=== PATIENT | male | born 1955 | race Caucasian/White ===

== ENCOUNTER → 2020-03-02 14:21 | Outpatient (CLI) | payer MEDICARE, SELFPAY ==
--- NOTE | ~2020-03-02 | MR_ITS ---
EXAMINATION: MR knee RT wo con DATE: 03/02/2020 15:05 INDICATION: Right knee pain. TECHNIQUE: Magnetic resonance imaging (MRI) of the right knee was performed without intravenous contr ast. Sequences included coronal and sagittal PD-weighted FS FSE and coronal, sagittal, and axial STIR FSE. COMPARISON: Right knee radiographs 02/18/2020, 06/09/2014 FINDINGS: There is artifact from a total right knee arthroplasty with patellar resurfacing. In the distal femor al metaphysis, there is a 4.5 x 1.8 cm lesion of mixed signal intensity correlating with a sclerotic lesion by radiographs. There is a small knee joint effusion. There is a small Jeffries's cyst. IMPRESSION: 1. Lesion in distal femoral metaphysis that is new from 06/09/2014. In the absence of known malignancy , this finding is most likely osteonecrosis. 2. Total right knee arthroplasty. 3. Small knee joint effusion. 4. Small Jeffries's cyst. Reviewed, dictated and finalized at location A. EMS TECHNICIAN IMPRESSION: 1. Lesion in distal femoral metaphysis that is new from 06/09/2014. In the absen ce of known malignancy, this finding is most likely osteonecrosis. 2. Total right knee arthroplasty. 3. Small knee joint effusion. 4. Small Jeffries's cyst.
== END ==
PROVIDERS: Visit Provider Orthopaedic Surgery
DX: M71.21 Synovial cyst of popliteal space [Baker], right knee (principal); M25.461 Effusion, right knee
CPT/HCPCS: 73721

== ENCOUNTER → 2020-03-17 07:24 | Outpatient (CLI) | payer MEDICARE, SELFPAY ==
--- NOTE | ~2020-03-17 | MR_ITS ---
EXAMINATION: MR lumbar spine wo con EXAM DATE: 03/17/2020 08:08 INDICATION: Lumbar radicular pain. TECHNIQUE: Multi-sequential, multiplanar MR images of the lumbar spine were obtained without contrast . Sagittal T1, T2, T2 fat saturation images. Axial T2 weighted images. There is no prior study for comparison. FINDINGS: There is mild to moderate disc disease from T11 through S1. There is 3 mm retrolisthesis L5 on S1. There are scattered focal signal abnormalities consistent with hemangiomata, otherwise withou t focal suspicious marrow signal abnormalities. The conus medullaris terminates at the L1/2 level and has normal signal intensity and morphology. Paraspinal soft tissue is unremarkable. Level by level evaluation: T12-L1: There is a mild diffuse disc bulge. Facet arthropathy: Mild. Neural foraminal stenosis: No stenosis. Central canal stenosis: No stenosis. L1-L2: There is a mild to moderate diffuse disc bulge. Facet arthropathy: Mild to moderate. Neural foraminal stenosis: Mild bilateral. Central canal stenosis: Mild. L2-L3: There is a moderate diffuse disc bulge. Facet arthropathy: Moderate. Neural foraminal stenosis: Mild bilateral. Central canal stenosis: Moderate, nerve root crowding. L3-L4: There is a moderate diffuse disc bulge. Facet arthropathy: Moderate. Neural foraminal stenosis: Mild to moderate bilateral. Central canal stenosis: Mild to moderate. L4-L5: There is a moderate diffuse disc bulge. Facet arthropathy: Moderate. Neural foraminal stenosis: Moderate bilateral. Central canal stenosis: Mild to moderate. L5-S1: There is a mild to moderate diffuse disc bulge. Facet arthropathy: Mild to moderate. Neural foraminal stenosis: Moderate right, mild to moderate left. Central canal stenosis: Mild. IMPRESSION: 1. Moderate lumbar spondylosis. Reviewed, dictated and finalized at location A. NG MILL SETTER
== END ==
PROVIDERS: Visit Provider Nurse Practitioner Family
DX: M47.26 Other spondylosis with radiculopathy, lumbar region (principal)
CPT/HCPCS: 72148

== ENCOUNTER 2021-01-12 13:38 | Emergency (ER) | payer MEDICARE, SELFPAY ==
[2021-01-12 13:46] VITALS: BP 166/74; PULSE 44; RESP 16; TEMP 36.3; O2SAT 98
--- NOTE | 2021-01-12 14:02 | ED.WOUNDLAC ---
HPI - Wound/Laceration General Chief Complaint: Wound/Laceration Stated Complaint: Laceration to Finger/Rignt Time Seen by Provider: 01/12/21 14:00 Source: patient, RN notes reviewed and old records reviewed Mode of arrival: ambulatory Limitations: no limitations History of Present Illness HPI narrative: 65 year old male presents to express care with complaints of laceration to his right 4th finger medial distal aspect which occurred about 30 minutes from accident with slash trimmer. Patient reports that his tetanus is up to date. Patient has 1.5cm laceration to the medial distal right 4th finger with moderate amount of bleeding noted on arrival, patient applied compression dressing at home prior to arrival. Patient has full movement of his right 4th finger with some stated intermittent tingling to his finger, good capillary refill of nail bed with no damage to nail noted. Patient has strong right radial pulse present. Onset (ago): minute(s) (30 MINUTES AGO) Patient tetanus UTD: Yes Context: accidental Treatments prior to arrival: bandage Related Data Home Medications Medication Instructions Recorded Confirmed bupropion HCl 300 mg 24 hr tablet, 300 mg PO QAM 11/26/19 01/12/21 extended release cyanocobalamin (vitamin B-12) 5,000 mcg SUBLINGUAL DAILY 11/26/19 01/12/21 5,000 mcg/mL sublingual drops etodolac 400 mg tablet 400 mg PO BID 11/26/19 01/12/21 gabapentin 800 mg tablet 800 mg PO DAILY 11/26/19 01/12/21 hydrocodone 2.5 mg-acetaminophen 1 tablet PO Q6H PRN 11/26/19 01/12/21 325 mg tablet lisinopril 40 mg tablet 40 mg PO DAILY 11/26/19 01/12/21 ropinirole 0.5 mg tablet 0.5 mg PO BID 11/26/19 01/12/21 rosuvastatin 10 mg tablet 10 mg PO DAILY 11/26/19 01/12/21 zolpidem 10 mg tablet 10 mg PO DAILY 11/26/19 01/12/21 Allergies Allergy/AdvReac Type Severity Reaction Status Date / Time No Known Allergies Allergy Unknown Verified 01/12/21 13:57 Review of Systems Review of Systems: CONSTITUTIONAL: Denies fever, chills, or sweats. EYES: Denies visual changes, redness, or discharge. ENT: Denies rhinorrhea, congestion, sore throat, or otalgia. CARDIOVASCULAR: Denies chest pain, palpitations, or edema. RESPIRATORY: Denies cough or dyspnea. GASTROINTESTINAL: Denies abdominal pain, nausea, vomiting, or diarrhea. GENITOURINARY: Denies dysuria or hematuria. SKIN: Denies rash or itching.Laceration to the right distal medial aspect of 4th finger, no nail involvement MUSCULOSKELETAL: Chronic back pain, joint pain, or myalgia. NEUROLOGIC: Denies headache, numbness, or weakness. PSYCHIATRIC: Positive history of anxiety or depression. All systems reviewed & are unremarkable except as noted in HPI and below PMFSH Past Medical History Medical History (Updated 01/16/21 @ 16:46 by Sophia Mckeon NP) Body mass index (BMI) of 40.1 to 44.9 in adult Chronic back pain DDD (degenerative disc disease) Depression Elevated cholesterol Hypertension Lesion of right femur right distal femur metaphyseal bone infarct verses enchondroma MYRIAM (obstructive sleep apnea) Pain in left shoulder Surgical History Surgical History H/O Achilles tendon repair Left, Dr. Villavicencio H/O knee surgery R TKA - Dr. Villavicencio L TKA - Dr. Mobley, L TK revision , Dr. Villavicencio H/O shoulder surgery right clavicle, Dr. Hyatt Family History Family History (Updated 01/16/21 @ 16:43 by Sophia Mckeon NP) Mother Hypertension Alzheimers disease Sibling Acute myocardial infarction Father COPD (chronic obstructive pulmonary disease) Alzheimers disease Other ALS (amyotrophic lateral sclerosis) Social History Social History (Updated 01/16/21 @ 16:37 by Sophia Mckeon NP) Smoking status: Former smoker Alcohol intake: never Substance use type: opiates Last use: pain management for chronic pain and epidurals for DDD Living arrangements: with family Gender identity (if verbalized by the pat
== END 2021-01-12 15:05 | disposition home or self-care (01) ==
PROVIDERS: Emergency Provider Registered Nurse; PCP Internal Medicine
DX: S61.214A Laceration without foreign body of right ring finger without damage to nail, initial encounter (principal); W29.3XXA Contact with powered garden and outdoor hand tools and machinery, initial encounter; Z87.891 Personal history of nicotine dependence; E78.00 Pure hypercholesterolemia, unspecified; I10 Essential (primary) hypertension; G47.33 Obstructive sleep apnea (adult) (pediatric); F32.A Depression, unspecified
CPT/HCPCS: 12001; 99213; G0463

== ENCOUNTER 2022-09-21 07:34 | Outpatient (CLI) | payer MEDICARE, SELFPAY ==
--- NOTE | 2022-09-21 07:57 | ECG_ITS ---
Measurements Intervals [place] Rate: 39 P: -5 DE: 205 QRS: 1 QRSD: 108 T: 15 QT: 448 QTc: 362 Interpretive Statements SINUS BRADYCARDIA WITH MARKED SINUS ARRHYTHMIA BORDERLINE AV CONDUCTION DELAY VOLTAGE CRITERIA FOR LVH BORDERLINE T WAVE ABNORMALITY- INFERIOR LEADS BASELINE ARTIFACT- I, II, III, AVR, AVL, AVF ABNORMAL ECG NO PREVIOUS ECG AVAILABLE FOR COMPARISON Electronically Signed On 09-21-2022 8:33:15 CDT by Alvaro Palmer D.O.
[2022-09-21 08:32] LABS: Hematocrit 43.9 % (42.0-52.0); Hemoglobin 14.1 g/dL (14.0-18.0); Mean Corpuscular HGB Conc 32.1 g/dl (32-36); Mean Corpuscular Hemoglobin 30.4 pg (26-34); Mean Corpuscular Volume 94.6 fl (80-100); Mean Platelet Volume 9.9 fl (7.4-10.4); Platelet Count Result 175 k/mm3 (150-375); Red Blood Count 4.64 M/mm3 (4.6-6.20); White Blood Count 6.5 K/mm3 (4.5-10.0)
[2022-09-21 08:36] LABS: Appearance Urine Clear (Clear); Bilirubin Urine Negative (Negative); Blood Urine Negative (Negative); Color Urine Yellow (Yellow); Glucose Urine UA Negative (Negative); Ketones Urine Negative (Negative); Leukocyte Esterase Ur Negative LEU/UL (Negative); Nitrate Urine Negative (Negative); Protein Urine Negative (Negative); pH Urine 5.5 (5.0-9.0)
[2022-09-21 08:40] LABS: INR 1.1; Prothrombin Time 15.2 Seconds (11.1-14.7)
[2022-09-21 08:41] LABS: Partial Thromboplastin Time 27.8 SECONDS (22.3-36.8)
[2022-09-21 08:52] LABS: Add Urine Microscopic? NO
[2022-09-21 10:04] LABS: Potassium 3.8 mmol/L (3.4-5.0)
[2022-09-21 10:09] LABS: Anion Gap 7 mmol/L (8-16); Blood Urea Nitrogen 22 mg/dL (9-20); Calcium 9.9 mg/dL (8.4-10.2); Carbon Dioxide 31 mmol/L (22-30); Chloride 102 mmol/L (98-107); Estimated Glomerular Filt Rate > 60; Glucose 91 mg/dL (65-110); Sodium 140 mmol/L (137-145)
== END 2022-09-21 07:35 | disposition home or self-care (01) ==
PROVIDERS: PCP Internal Medicine; Visit Provider Neurological Surgery
DX: G89.29 Other chronic pain (principal); M54.9 Dorsalgia, unspecified; I10 Essential (primary) hypertension; Z01.818 Encounter for other preprocedural examination; R94.31 Abnormal electrocardiogram [ECG] [EKG]
CPT/HCPCS: 36415; 80048; 81003; 85027; 85610; 85730; 93005

== ENCOUNTER 2022-09-27 01:42 | Day surgery (SDC) | payer MEDICARE, SELFPAY ==
[2022-09-20 11:17] VITALS: BMI 35.7
--- NOTE | 2022-09-20 11:53 | PC.NURSE ---
Report to the Outpatient Waiting Room, entrance under the green pavilion located off [facility], at time __8:30AM on date __09/27/22 . Planned Procedure Time: __10:30AM . Time changes happen often and if your time is changed the preop area will call you the afternoon before. - You and your visitor will be asked to self-screen and do not enter if you have any COVID symptoms. - A mask is optional within the hospital at this time. Patients may have clear liquids (water, carbonated beverages, clear teas, apple juice) until 3 hours prior to surgery with a maximum of 20 ounces. - No food from midnight until time of surgery Take the following medications with a SIP of water the morning of surgery: __BUPROPRION, GABAPENTIN, OXYCODONE DO NOT STOP ANY OF YOUR OTHER PRESCRIPTION MEDICATIONS PRIOR TO SURGERY ?EXCEPT THE FOLLOWING Medications to discontinue per physician ____HOLD ELIQUIS 3 DAYS PRE-OP PER DR TADEO(PER PATIENT)- LAST DOSE 09/23/22. HOLD ALL VITAMINS/SUPPLEMENTS 3 DAYS PRE-OP PER ANESTHESIA- LAST DOSE 09/23/22. Please no make-up, nail ukrainian, hairspray, perfume, deodorant, or body powder the day of surgery. No jewelry (including any body piercings) or valuables the day of surgery, leave them at home. Please take a shower or bath the night before, or the morning of, surgery with an antibacterial soap. Wear comfortable, loose fitting clothing. Children are encouraged to wear pajamas. - Jewelry must be removed prior to entering the operating room. Rings and piercings that are not removed may be cut off. - The hospital will not accept responsibility for valuables. - Please leave all valuables, including medications, at home the day of surgery. If you are going home after surgery, a licensed residential recycle driver must drive you home. - NO public transportation without another adult if you receive anesthesia. - We recommend that an adult stay with you for 24 hours following discharge. - We also recommend that you do not drive, make important decision, drink alcoholic beverages, or take any drugs that were not prescribed by your health care provider for at least 24 hours after your discharge time. Follow any additional instructions given to you from your surgeon. If you or anyone in your household have experienced Covid symptoms in the past week, please notify your surgeon or the nurse liaison at the phone number below for possible testing. Telephone instructions given to __PATIENT and asked if any additional questions and then verbalized understanding. Patient advised to call surgeon office or pre surgery nurse liaison [phone] if any additional questions.
--- NOTE | 2022-09-26 14:46 | WPDANESEPPF ---
Anes - Initial Pre Proc Eval Procedure: Operation Date: 09/27/22 12:30 Proposed Procedures p Insertion Dorsal Column Stimulator Lead and Generator - Jeremy Freire MD Date/Time: 09/26/22 14:46 Surgeon: Jeremy Freire MD Pre Op Diagnosis: chronic back and leg pain Patient Data Age: 67 Gender: M Height: 1.85 m Weight: 123 kg Allergies Allergy/AdvReac Type Severity Reaction Status Date / Time pork derived (porcine) AdvReac Severe Nausea and Verified 09/20/22 11:04 Vomiting, DIARRHEA morphine AdvReac Intermediate vomiting Verified 09/26/22 14:20 and diarrhea Home Medications Medication Instructions Recorded Confirmed Type gabapentin 800 mg tablet 800 mg PO BID 11/26/19 09/20/22 History ropinirole 0.5 mg tablet 0.5 mg PO HS 11/26/19 09/20/22 History zolpidem 10 mg tablet 10 mg PO HS 11/26/19 09/20/22 History valsartan 320 mg tablet 320 mg PO QAM 07/28/21 09/20/22 History B6 0.85 mg-folic 200 1 tablet PO HS 01/06/22 09/20/22 History [id number] oral chewable tablet (Neuriva Plus) apixaban 5 mg tablet (Eliquis) 5 mg PO BID 01/06/22 09/20/22 History ascorbic acid (vitamin C) 500 mg 500 mg PO BID 01/06/22 09/20/22 History capsule cholecalciferol (vitamin D3) 250 250 mcg PO DAILY 01/06/22 09/20/22 History mcg (10,000 unit) capsule rosuvastatin 10 mg tablet 10 mg PO DAILY 01/06/22 09/20/22 History triamcinolone acetonide 55 mcg 1 spray intranasal HS PRN 01/06/22 09/20/22 History nasal spray aerosol (Nasacort) Congestion bupropion HCl 300 mg 24 hr tablet, 300 mg PO QAM 09/20/22 09/20/22 History extended release cyanocobalamin (vitamin B-12) 1,000 mcg PO DAILY 09/20/22 09/20/22 History 1,000 mcg tablet hydrocodone 10 mg-acetaminophen 1 tablet PO TID PRN Pain 09/20/22 09/20/22 History 325 mg tablet oxycodone myristate 18 mg capsule 18 mg PO BID 09/20/22 09/20/22 History sprinkle extended release 12hr(DON'T CRUSH) (Xtampza ER) Patient hx anesthesia problems: none Family hx anesthesia problems: none Results Review: All pre-operative results and documents have been reviewed as part of the pre-operative evaluation. [facility] Past Medical History Medical History (Updated 09/26/22 @ 14:47 by Pedro Zimmerman DO) Atrial fibrillation Body mass index (BMI) of 40.1 to 44.9 in adult Chronic back pain DDD (degenerative disc disease) Depression Elevated cholesterol Hypertension Lesion of right femur 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 Villavicencio H/O knee surgery R TKA - Dr. Villavicencio L TKA - Dr. Mobley L TK revision , Dr. Villavicencio H/O shoulder surgery right clavicle, Dr. Hyatt Family History Family History Mother Hypertension Alzheimers disease Sibling Acute myocardial infarction Father COPD (chronic obstructive pulmonary disease) Alzheimers disease Other ALS (amyotrophic lateral sclerosis) Social History Social History Smoking status: Never smoker Alcohol intake: never Substance use: never Substance use type: opiates Last use: pain management for chronic pain and epidurals for DDD Lack of Transportation: No Lack of Food: Never True Current Housing: I Have Housing Concerned About Future Housing: No Difficulty Paying Gas/Electric Bills: No Difficulty Paying for Meds: No Currently Unemployed: No Education: High School Diploma/GED Difficulty w/ Childcare or Family Care: No Living arrangements: with family Additional living arrangements comments: Occupation/Education: retired Gender identity (if verbalized by the patient): Male Spiritual care concer
--- NOTE | 2022-09-27 11:06 | WPDANESEPPF ---
Anes - Initial Pre Proc Eval Procedure: Operation Date: 09/27/22 12:30 Proposed Procedures p Insertion Dorsal Column Stimulator Lead and Generator - Jeremy Freire MD Date/Time: 09/27/22 11:06 Surgeon: Jeremy Freire MD Pre Op Diagnosis: chronic back and leg pain Patient Data Age: 67 Gender: M Height: 1.85 m Weight: 123 kg Allergies Allergy/AdvReac Type Severity Reaction Status Date / Time pork derived (porcine) AdvReac Severe Nausea and Verified 09/20/22 11:04 Vomiting, DIARRHEA morphine AdvReac Intermediate vomiting Verified 09/26/22 14:20 and diarrhea Home Medications Medication Instructions Recorded Confirmed Type gabapentin 800 mg tablet 800 mg PO BID 11/26/19 09/20/22 History ropinirole 0.5 mg tablet 0.5 mg PO HS 11/26/19 09/20/22 History zolpidem 10 mg tablet 10 mg PO HS 11/26/19 09/20/22 History valsartan 320 mg tablet 320 mg PO QAM 07/28/21 09/20/22 History B6 0.85 mg-folic 200 1 tablet PO HS 01/06/22 09/20/22 History [id number] oral chewable tablet (Neuriva Plus) apixaban 5 mg tablet (Eliquis) 5 mg PO BID 01/06/22 09/20/22 History ascorbic acid (vitamin C) 500 mg 500 mg PO BID 01/06/22 09/20/22 History capsule cholecalciferol (vitamin D3) 250 250 mcg PO DAILY 01/06/22 09/20/22 History mcg (10,000 unit) capsule rosuvastatin 10 mg tablet 10 mg PO DAILY 01/06/22 09/20/22 History triamcinolone acetonide 55 mcg 1 spray intranasal HS PRN 01/06/22 09/20/22 History nasal spray aerosol (Nasacort) Congestion bupropion HCl 300 mg 24 hr tablet, 300 mg PO QAM 09/20/22 09/20/22 History extended release cyanocobalamin (vitamin B-12) 1,000 mcg PO DAILY 09/20/22 09/20/22 History 1,000 mcg tablet hydrocodone 10 mg-acetaminophen 1 tablet PO TID PRN Pain 09/20/22 09/20/22 History 325 mg tablet oxycodone myristate 18 mg capsule 18 mg PO BID 09/20/22 09/20/22 History sprinkle extended release 12hr(DON'T CRUSH) (Xtampza ER) Laboratory Tests 09/27/22 10:57 PT Pending INR Pending APTT Pending Patient hx anesthesia problems: none Family hx anesthesia problems: none Results Review: All pre-operative results and documents have been reviewed as part of the pre-operative evaluation. [facility] Past Medical History Medical History (Updated 09/26/22 @ 14:47 by Pedro Zimmerman, ) Atrial fibrillation Body mass index (BMI) of 40.1 to 44.9 in adult Chronic back pain DDD (degenerative disc disease) Depression Elevated cholesterol Hypertension Lesion of right femur 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 Villavicencio H/O knee surgery R TKA - Dr. Villavicencio L TKA - Dr. Mobley, L TK revision , Dr. Villavicencio H/O shoulder surgery right clavicle, Dr. Hyatt Family History Family History Mother Hypertension Alzheimers disease Sibling Acute myocardial infarction Father COPD (chronic obstructive pulmonary disease) Alzheimers disease Other ALS (amyotrophic lateral sclerosis) Social History Social History Smoking status: Never smoker Alcohol intake: never Substance use: never Substance use type: opiates Last use: pain management for chronic pain and epidurals for DDD Lack of Transportation: No Lack of Food: Never True Current Housing: I Have Housing Concerned About Future Housing: No Difficulty Paying Gas/Electric Bills: No Difficulty Paying for Meds: No Currently Unemployed: No Education: High School Diploma/GED Difficulty w/ Childcare or Family Care: No Living arrangements: with family Additional living arrangements comments: Occupati
[2022-09-27 11:13] VITALS: BP 138/68; PULSE 40; RESP 14; TEMP 37; O2SAT 99
[2022-09-27 11:13] LABS: Partial Thromboplastin Time 25.3 SECONDS (22.3-36.8); Prothrombin Time 13.5 Seconds (11.1-14.7)
--- NOTE | 2022-09-27 12:34 | PM.IMHP ---
H&P: HPI History of Present Illness Date/Time: 09/27/22 12:34 Chief Complaint: Back and leg pain Narrative: Daljit is a 59-year-old gentleman with back and leg pain that responded to a successful dorsal column stimulator trial who presents now for permanent implantation by way of laminectomy. He does not have specific muscle group weakness or dermatomal numbness. He is not having any bowel or bladder difficulty. Review of Systems Review of Systems: Patient denies shortness of breath, cough, fever, chills, nausea, vomiting, weight loss, weight gain, chest pain, dysuria. He has back and leg pain as described above. [facility] Past Medical History Medical History (Updated 09/26/22 @ 14:47 by Pedro Zimmerman DO) Atrial fibrillation Body mass index (BMI) of 40.1 to 44.9 in adult Chronic back pain DDD (degenerative disc disease) Depression Elevated cholesterol Hypertension Lesion of right femur 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 Villavicencio H/O knee surgery R TKA - Dr. Villavicencio L TKA - Dr. Mobley, L TK revision , Dr. Villavicencio H/O shoulder surgery right clavicle, Dr. Hyatt Family History Family History Mother Hypertension Alzheimers disease Sibling Acute myocardial infarction Father COPD (chronic obstructive pulmonary disease) Alzheimers disease Other ALS (amyotrophic lateral sclerosis) Social History Social History Smoking status: Never smoker Alcohol intake: never Substance use: never Substance use type: opiates Last use: pain management for chronic pain and epidurals for DDD Lack of Transportation: No Lack of Food: Never True Current Housing: I Have Housing Concerned About Future Housing: No Difficulty Paying Gas/Electric Bills: No Difficulty Paying for Meds: No Currently Unemployed: No Education: High School Diploma/GED Difficulty w/ Childcare or Family Care: No Living arrangements: with family Additional living arrangements comments: Occupation/Education: retired Gender identity (if verbalized by the patient): Male Spiritual care concerns: No Meds Home Medications and Allergies Home Medications Medication Instructions Recorded Confirmed Type gabapentin 800 mg tablet 800 mg PO BID 11/26/19 09/20/22 History ropinirole 0.5 mg tablet 0.5 mg PO HS 11/26/19 09/20/22 History zolpidem 10 mg tablet 10 mg PO HS 11/26/19 09/20/22 History valsartan 320 mg tablet 320 mg PO QAM 07/28/21 09/20/22 History B6 0.85 mg-folic 200 1 tablet PO HS 01/06/22 09/20/22 History [id number] oral chewable tablet (Neuriva Plus) apixaban 5 mg tablet (Eliquis) 5 mg PO BID 01/06/22 09/20/22 History ascorbic acid (vitamin C) 500 mg 500 mg PO BID 01/06/22 09/20/22 History capsule cholecalciferol (vitamin D3) 250 250 mcg PO DAILY 01/06/22 09/20/22 History mcg (10,000 unit) capsule rosuvastatin 10 mg tablet 10 mg PO DAILY 01/06/22 09/20/22 History triamcinolone acetonide 55 mcg 1 spray intranasal HS PRN 01/06/22 09/20/22 History nasal spray aerosol (Nasacort) Congestion bupropion HCl 300 mg 24 hr tablet, 300 mg PO QAM 09/20/22 09/20/22 History extended release cyanocobalamin (vitamin B-12) 1,000 mcg PO DAILY 09/20/22 09/20/22 History 1,000 mcg tablet hydrocodone 10 mg-acetaminophen 1 tablet PO TID PRN Pain 09/20/22 09/20/22 History 325 mg tablet oxycodone myristate 18 mg capsule 18 mg PO BID 09/20/22 09/20/22 History sprinkle extended release 12hr(DON'T CRUSH) (Xtampza ER) Allergies Allergy/AdvReac Type Severity Reaction Status Date / Time pork derived (porcine) AdvReac Severe Nausea and Verifi
--- NOTE | 2022-09-27 12:44 | WPDHPUPDATE1 ---
History and Physical Update Update Date/Time: 09/27/22 12:44 History and Physical has been reviewed, including an updated exam of the patient. There are NO changes in the patient's condition. Risks, benefits, and alternatives have been discussed and questions answered. Patient agrees to proceed with procedure.
[2022-09-27 13:19] VITALS: BP 156/73; PULSE 45; RESP 16; O2SAT 97
[2022-09-27] MEDS: LACTATED RINGERS 1,000 ML 30 ML IV CONT (13:19)
--- NOTE | 2022-09-27 15:01 | SUR.PHASEII ---
Dr. Freire and Dr. Gallardo both came to the bedside and spoke to patient and spouse about why the case was aborted. Dr. Freire told the patient and spouse about the next steps since this happened today. RN told the spouse to have patient follow-up with primary/radiation control specialist as well.
== END 2022-09-27 14:26 | disposition home or self-care (01) ==
PROVIDERS: PCP Internal Medicine; Visit Provider Neurological Surgery
PROC: (CPT 63655; principal; 2022-09-27 12:30)
DX: M47.816 Spondylosis without myelopathy or radiculopathy, lumbar region (principal); I48.91 Unspecified atrial fibrillation; I10 Essential (primary) hypertension; E78.00 Pure hypercholesterolemia, unspecified; G47.33 Obstructive sleep apnea (adult) (pediatric); Z79.01 Long term (current) use of anticoagulants; Z79.891 Long term (current) use of opiate analgesic; Z53.09 Procedure and treatment not carried out because of other contraindication
CPT/HCPCS: 63655; 63685; 36415; 80048; 81003; 85027; 85610; 85730; 93005; J1170; J2250; J3010; J3370; J7120

== ENCOUNTER 2023-12-07 16:32 | Emergency (ER) | payer MEDICARE, SELFPAY ==
[2023-12-07 16:55] VITALS: BP 139/86; PULSE 69; RESP 20; TEMP 37.2; O2SAT 96
[2023-12-07 17:30] VITALS: BP 139/86; PULSE 69; RESP 20; TEMP 37.2; O2SAT 96
--- NOTE | 2023-12-07 21:20 | ED.SKABFB ---
HPI - Skin/Abscess/Foreign Bdy General Chief complaint: Skin/Abscess/Foreign Body Stated complaint: lt first finger laceration Time Seen by Provider: 12/07/23 16:58 Source: patient, RN notes reviewed and old records reviewed Mode of arrival: ambulatory Limitations: no limitations History of Present Illness HPI narrative: 68-year-old male to Express Care with complaint of injury to distal 2nd finger of left hand. Patient reports that approximately 30 minutes prior to arrival he injured it with a hat trimmer. Patient reports that he did something similar to his right hand approximately 1 year ago so his tetanus is up to date. Bleeding controlled upon arrival. Patient calm and cooperative in exam room. Related Data Home Medications Medication Instructions Recorded Confirmed gabapentin 800 mg tablet 800 mg PO BID 11/26/19 12/07/23 ropinirole 0.5 mg tablet 0.5 mg PO BID 11/26/19 12/07/23 zolpidem 10 mg tablet 10 mg PO HS 11/26/19 12/07/23 valsartan 320 mg tablet 320 mg PO QAM 07/28/21 12/07/23 B6 0.85 mg-folic 200 1 tablet PO HS 01/06/22 12/07/23 [id number] oral chewable tablet (Neuriva Plus) ascorbic acid (vitamin C) 500 mg 500 mg PO BID 01/06/22 12/07/23 capsule cholecalciferol (vitamin D3) 250 250 mcg PO DAILY 01/06/22 12/07/23 mcg (10,000 unit) capsule cyanocobalamin (vitamin B-12) 1,000 mcg PO DAILY 09/20/22 12/07/23 1,000 mcg tablet hydrocodone 10 mg-acetaminophen 1 tablet PO TID PRN Pain 09/20/22 12/07/23 325 mg tablet oxycodone myristate 18 mg capsule 18 mg PO BID 09/20/22 12/07/23 sprinkle extended release 12hr(DON'T CRUSH) (Xtampza ER) apixaban 5 mg tablet (Eliquis) 5 mg PO BID 12/07/23 12/07/23 diltiazem HCl 90 mg tablet 90 mg PO BID 12/07/23 12/07/23 magnesium oxide 400 mg (241.3 mg 400 mg PO HS 12/07/23 12/07/23 magnesium) tablet primidone 50 mg tablet 50 mg PO BID 12/07/23 12/07/23 rosuvastatin 10 mg tablet 10 mg PO QMWF 12/07/23 12/07/23 tizanidine 4 mg tablet 4 mg PO TID 12/07/23 12/07/23 Allergies Allergy/AdvReac Type Severity Reaction Status Date / Time pork derived (porcine) AdvReac Severe Nausea and Verified 03/07/23 14:26 Vomiting, DIARRHEA morphine AdvReac Intermediate vomiting Verified 03/07/23 14:26 and diarrhea Review of Systems Review of Systems: All systems reviewed & are unremarkable except as noted in HPI and below Constitutional: Constitutional: Reports no additional constitutional complaints Eyes: Eyes: Reports no additional eye complaints ENT: Reports system reviewed and no additional complaints, except as documented Cardiovascular: Cardiovascular: Reports no additional cardiovascular complaints, Denies chest pain and Denies dyspnea Respiratory: Respiratory: Reports no additional respiratory complaints, Denies cough and Denies dyspnea Musculoskeletal: Musculoskeletal: Reports no additional musculoskeletal complaints Integumentary/Breasts: Skin/Breast: Reports as per HPI and Reports wounds ( Distal 2nd finger of left hand) Neurologic: Reports system reviewed and no additional complaints, except as documented Psychiatric: Psychiatric: Reports no additional psychiatric complaints REPLACED BY [facility] Past Medical History Medical History Atrial fibrillation Body mass index (BMI) of 40.1 to 44.9 in adult Chronic back pain DDD (degenerative disc disease) Depression Elevated cholesterol Hypertension Lesion of right femur 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 Villavicencio H/O knee surgery R TKA - Dr. Saud Lam TKA - Dr. Mobley, L TK revision , Dr. Villavicencio H/O shoulder surgery right clavicle, Dr. Hyatt History of back surgery 01/17/23- neurostim
== END 2023-12-07 17:23 | disposition short-term general hospital (02) ==
PROVIDERS: Emergency Provider Nurse Practitioner Family; PCP Internal Medicine
DX: S61.211A Laceration without foreign body of left index finger without damage to nail, initial encounter (principal); W29.3XXA Contact with powered garden and outdoor hand tools and machinery, initial encounter; I48.91 Unspecified atrial fibrillation; E78.00 Pure hypercholesterolemia, unspecified; I10 Essential (primary) hypertension; Z79.01 Long term (current) use of anticoagulants
CPT/HCPCS: 99212; G0463

== ENCOUNTER 2024-09-01 19:17 | Emergency (ER) | payer MEDICARE, SELFPAY ==
--- NOTE | ~2024-09-01 | XR_ITS ---
EXAM: XR shoulder RT min 2V DATE: 09/01/2024 19:55 HISTORY: pain with trauma . COMPARISON: 12/21/2023, images only. FINDINGS: Normal mineralization. No fracture or dislocation. No lytic or blastic lesion. AC joint mi jakub, likely postsurgical. Moderate degenerative change at the glenohumeral joint. Chronic soft tissu e calcification at the tip of the acromion. No erosion or periosteal change. Soft tissues within norm al limits. Right chest pacer. IMPRESSION: No acute osseous finding in the right shoulder. Reviewed, dictated and finalized at location K.
--- NOTE | 2024-09-01 19:18 | ED.UPPEXIN ---
HPI - Extremity Injury (Upper) General Chief Complaint: Extremity Injury, Upper Stated Complaint: Fall Injury/Right Shoulder Time Seen by Provider: 09/01/24 19:18 Patient presents to [facility] with complaints of right shoulder pain that began just prior to arrival at clinic patient was attempting to step on his bed to reach for something and lost his balance falling onto this right shoulder. Patient reports history of surgery on this right shoulder and has also had tendinitis in the rotator cuff on both right and left shoulders. Patient does have pain with range of motion but did take a hydrocodone at home but no relief of pain. Denies numbness or tingling in right arm, headache, or dizziness. Related Data Home Medications ?Medication ?Instructions ?Recorded ?Confirmed ?Last Taken ?Type gabapentin 800 mg tablet 800 mg PO BID 11/26/19 12/21/23 Unknown History ropinirole 0.5 mg tablet 0.5 mg PO BID 11/26/19 12/21/23 Unknown History zolpidem 10 mg tablet 10 mg PO HS 11/26/19 12/21/23 Unknown History valsartan 320 mg tablet 320 mg PO QAM 07/28/21 12/21/23 Unknown History B6 0.85 mg-folic 200 1 tablet PO HS 01/06/22 12/21/23 Unknown History [id number] oral chewable tablet (Neuriva Plus) ascorbic acid (vitamin C) 500 mg 500 mg PO BID 01/06/22 12/21/23 Unknown History capsule cholecalciferol (vitamin D3) 250 250 mcg PO DAILY 01/06/22 12/21/23 Unknown History mcg (10,000 unit) capsule cyanocobalamin (vitamin B-12) 1,000 mcg PO DAILY 09/20/22 12/21/23 Unknown History 1,000 mcg tablet hydrocodone 10 mg-acetaminophen 1 tablet PO TID PRN Pain 09/20/22 12/21/23 Unknown History 325 mg tablet apixaban 5 mg tablet (Eliquis) 5 mg PO BID 12/07/23 12/21/23 Unknown History diltiazem HCl 90 mg tablet 90 mg PO BID 12/07/23 12/21/23 Unknown History magnesium oxide 400 mg (241.3 mg 400 mg PO HS 12/07/23 12/21/23 Unknown History magnesium) tablet primidone 50 mg tablet 50 mg PO BID 12/07/23 12/21/23 Unknown History rosuvastatin 10 mg tablet 10 mg PO QMWF 12/07/23 12/21/23 Unknown History bupropion HCl 150 mg 24 hr tablet, mg PO 09/01/24 Unknown History extended release sildenafil 50 mg tablet mg 09/01/24 Unknown History topiramate 25 mg sprinkle capsule mg PO 09/01/24 Unknown History tramadol 100 mg tablet,extended mg PO 09/01/24 Unknown History release 24 hr Allergies Allergy/AdvReac Type Severity Reaction Status Date / Time pork derived (porcine) AdvReac Severe Nausea and Verified 09/01/24 19:19 Vomiting, DIARRHEA morphine AdvReac Intermediate vomiting Verified 09/01/24 19:19 and diarrhea Review of Systems Constitutional: Constitutional: Reports as per HPI, Denies chills, Denies fatigue, Denies fever(s) and Denies weakness Eyes: Eyes: Reports no additional eye complaints Cardiovascular: Cardiovascular: Reports no additional cardiovascular complaints Respiratory: Respiratory: Reports no additional respiratory complaints Gastrointestinal: Gastrointestinal: Reports no additional gastrointestinal complaints Genitourinary: Genitourinary: Reports no additional male genitourinary complaints Musculoskeletal: Musculoskeletal: Reports as per HPI, Denies back pain, Denies myalgias, Reports arthralgias, Denies joint swelling and Denies muscle cramps Integumentary/Breasts: Skin/Breast: Reports as per HPI, Denies erythema and Denies rash Neurologic: Reports as per HPI, Denies numbness and Denies weakness Psychiatric: Psychiatric: Reports no additional psychiatric complaints Endocrine: Endocrine: Reports no additional endocrine complaints Hematologic/Lymphatic: Hematologic/Lymphatic: Reports no additional hematologic/lymphatic complaints Allergic/Immunologic: Allergic/Immunologic: Reports no additional allergic/immunologic complaints [facility] Past Medical History Medical History (Updated 09/01/24 @ 20:09 by RUDY Wilson-C) History of pacemaker Panic attack Atrial fibrillation MYRIAM (obstructive sleep apnea) BiPap Depression Elevated cholesterol Chronic back pain DDD (degenerative disc disease) Pain in left shoulder 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 Villavicencio H/O shoulder surgery right clavicle, Dr. Hyatt H/O knee surgery R TKA - Dr. Saud Lam TKA - Dr. Mobley, L TK revision , Dr. Villavicencio Family History Family History Mother Hypertension Alzheimers disease Sibling Acute myocardial infarction Father COPD (chronic obstructive pulmonary disease) Alzheimers disease Other ALS (amyotrophic lateral sclerosis) Social History Social History (Updated 12/21/23 @ 09:23 by Klaudia Vega [facility]) Smoking status: Never smoker Alcohol intake: never Substance use: never Substance use type: opiates Last use: pain management for chronic pain and epidurals for DDD Do You Feel Safe in your Home?: Yes Lack of Transportation: No Lack of Food: Never True Current Housing: I Have Housing Concerned About Future Housing: No Difficulty Paying Gas/Electric Bills: YES Difficulty Paying for Meds: YES Currently Unemployed: No Education: High School Diploma/GED Difficulty w/ Childcare or Family Care: No Living arrangements: with family Additional living arrangements comments: Occupation/Education: retired Gender identity (if verbalized by the patient): Male Spiritual care concerns: No Exam Const: General: healthy appearing and no acute distress Nutritional Appearance: well nourished Orientation/consciousness: patient oriented x3 Limitations: no limitations Neck: Neck: normal visual inspection and no lymphadenopathy Other: normal ROM, no vertebral tenderness Chest: Chest palpation & inspection: normal inspection of the chest and no tenderness Resp: Effort & Inspection: normal respiratory effort Auscultation: clear to auscultation bilaterally Cardio: Rate: regular rate Skin: General skin exam: normal color Rashes: no rashes Wounds: no wounds Neuro: General: patient oriented x3 Speech: normal speech Gait exam (Neuro): Normal gait present Extrem: Right upper extremity: shoulder/upper arm normal to inspection, tenderness, axillary nerve sensory function normal and abnormal ROM pain with active ROM and pain with passive ROM; inspection normal, no swelling, no abrasions, no lacerations, no ecchymosis, no crepitus, no penetrating wound and no deformity Psych: Mental Status: mental status grossly normal Affect: normal affect Attitude: cooperative Course Course Level of Care: [facility] Care Visit Vital Signs Vital signs: Vital Signs Temperature 97.2 F L 09/01/24 19:30 Pulse Rate 70 09/01/24 19:30 Respiratory Rate 18 09/01/24 19:30 Blood Pressure 171/90 H 09/01/24 19:30 Pulse Oximetry 99 09/01/24 19:30 Oxygen Delivery Room Air 09/01/24 19:30 Temperature 97.2 F L 09/01/24 19:30 Pulse Rate 70 09/01/24 19:30 Respiratory Rate 18 09/01/24 19:30 Blood Pressure 171/90 H 09/01/24 19:30 Pulse Oximetry 99 09/01/24 19:30 Oxygen Delivery Room Air 09/01/24 19:30 MDM - Extremity Injury (Upper) MDM Narrative Medical decision making narrative: X-rays ordered for evaluation patient does not need pain medication already has several types of pain medication at home for various injuries and is already established with Orthopedics Discharge instructions reviewed with patient, as well as provided in writing per nursing staff. The instructions also include specific and strict return/GO TO THE ER as well as f/u information. All questions have been answered, and the patient deny any further questions with discharge and discharge plan. Differential Diagnosis Differential diagnosis: Likely dislocation of shoulder, fracture of humerus and fracture of clavicle Medical Records Attestation: I reviewed the patient's medical records. Imaging Data Radiologist's impression: IMPRESSION: No acute osseous finding in the right shoulder. Reviewed, dictated and finalized at [facility]. Discharge Plan Discharge Clinical Impression: Contusion of right shoulder Patient Disposition: Home Condition: Stable Instructions: Antibiotic Form, Shoulder Pain (ED) Patient Language: Occitan Prescriptions: No Action sildenafil 50 mg tablet topiramate 25 mg capsule, sprinkle PO bupropion HCl 150 mg tablet extended release 24 hr PO tramadol 100 mg tablet extended release 24 hr PO Eliquis 5 mg tablet 5 mg PO BID diltiazem HCl 90 mg tablet 90 mg PO BID primidone 50 mg tablet 50 mg PO BID magnesium oxide 400 mg (241.3 mg magnesium) tablet 400 mg PO HS rosuvastatin 10 mg tablet 10 mg PO QMWF valsartan 320 mg tablet 320 mg PO QAM gabapentin 800 mg tablet 800 mg PO BID ropinirole 0.5 mg tablet 0.5 mg PO BID zolpidem 10 mg tablet 10 mg PO HS ascorbic acid (vitamin C) 500 mg capsule 500 mg PO BID cholecalciferol (vitamin D3) 250 mcg (10,000 unit) capsule 250 mcg PO DAILY Neuriva Plus 0.85 mg-200 mcg-1.2 mcg tablet,chewable 1 tablet PO HS cyanocobalamin (vitamin B-12) 1,000 mcg Tablet 1,000 mcg PO DAILY hydrocodone-acetaminophen 10-325 mg tablet 1 tablet PO TID PRN (Reason: Pain) Follow-up/Referrals: Ebenezer,Rivera Garsia MD [Primary Care Provider] - Time of Disposition: 20:09
--- OUTSIDE RECORDS SUMMARY | 2024-09-01 19:18 | XMS_ITS | Referral Summary ---
Author Organization [facility] Address [address] [place] [address] Care Team Providers Care Vb Net Developer Name Role Phone Oliver Sol MD Primary Care Provider + Jeremy Freire MD Unavailable [phone] Encounters Date Type Department Care Team Description 08/15/2024 Orders Only [facility] [address] [place] [address] [address] [place] [id number] Terry Zapata MD 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 (Primary Dx); Post-traumatic headache, not intractable, unspecified chronicity pattern 08/15/2024 8:30 AM CDT Office Visit [facility] [address] [place] [address] [address] [place] [id number] Terry Zapata MD MYRIAM (obstructive sleep apnea) (Primary Dx); Restless leg syndrome; Psychophysiological insomnia; Essential tremor; Hypersomnia with sleep apnea from Last 3 Months Allergies Active Allergy Reactions Criticality Noted Date Comments Amlodipine Edema Reaction: edema, Hydrochlorothiazide Flushing (skin) Reaction: flushing, Morphine Sulfate Nausea & Vomiting Low 11/08/2021 Pork/Porcine Containing Products Diarrhea,Nausea & Vomiting,Vomiting Low Prochlorperazine Other (See comments) Medium Reaction: Nausea, vomiting, Triamterene Flushing (skin) Reaction: flushing, Medications gabapentin (NEURONTIN) 400 mg capsule Take 2 capsules (800 mg total) by mouth 2 (two) times a day Active oxyCODONE myristate (XTAMPZA ER) 13.5 mg capsule,sprink le,ER 12hr tmprr Take 13.5 mg by mouth every 12 (twelve) hours 09/18/19 19 Active HYDROcodone-ac etaminophen (NORCO) 10-325 mg per tabletIndicati ons:Breakthrou gh Pain in Opioid-Toleran t Patients,Pain Take 1 tablet by mouth 2 (two) times a day as needed Active naloxone (NARCAN) 4 mg/actuation spray,non-aero dwight 05/26/19 22 Active valsartan (DIOVAN) 320 mg tablet Take 1 tablet (320 mg total) by mouth daily 05/04/19 22 Active ascorbic acid (VITAMIN C) 500 mg tablet,chewabl e 1 tablet/chew tab (500 mg total) Active cholecalcifero l (VITAMIN D-3) 96929 unit capsule Take 1 capsule (10,000 Units total) by mouth daily Active cyanocobalamin (Vitamin B-12) 1,000 mcg tabletIndicati ons:Prevention of Vitamin B12 Deficiency Take 5 tablets (5,000 mcg total) by mouth daily Active B6/folic/B12/c offee/phosphat id (NEURIVA PLUS ORAL) Take by mouth Activ e fluticasone propionate (FLONASE) 50 mcg/actuation nasal sprayIndicatio ns:Non-seasona l allergic rhinitis due to pollen Administer 2 sprays into each nostril daily 16 g 06/02/19 22 Active cetirizine (ZyrTEC) 10 mg tabletIndicati ons:Non-season al allergic rhinitis due to pollen Take 1 tablet (10 mg total) by mouth daily 30 tablet 06/02/19 22 Active rosuvastatin (CRESTOR) 10 mg tablet Take 1 tablet (10 mg total) by mouth daily Active bempedoic acid-ezetimibe (Nexlizet) 180-10 mg tablet Take by mouth Active oxyCODONE (ROXICODONE) 5 mg immediate release tabletIndicati ons:Pain Take 1-2 tablets (5-10 mg total) by mouth every 4 (four) hours as needed for pain 30 tablet 01/18/20 23 Active apixaban (ELIQUIS) 5 mg tablet Take 1 tablet (5 mg total) by mouth 2 (two) times a day Active bacitracin 500 unit/gram ointment Apply topically 2 (two) times a day 120 g 12/07/19 24 Active buPROPion XL (WELLBUTRIN XL) 150 mg 24 hr tablet Take 2 tablets (300 mg total) by mouth daily 04/12/19 25 Active dilTIAZem (CARDIZEM) 90 mg tablet Take 2 tablets (180 mg total) by mouth 2 (two) times a day Active magnesium oxide (MAG-OX) 400 mg (241.3 mg elemental magnesium) tablet magnesium oxide 400 mg (241.3 mg magnesium) tablet 04/19/19 24 Active sildenafiL (VIAGRA) 50 mg tablet TAKE 1 TABLET BY MOUTH ONE HOUR BEFORE SEXUAL ACTIVITY. JUNE REPEAT 1 TIME. MAX OF 2 TABS IN 24 HOUR 05/08/19 25 Active traMADol ER (ULTRAM-ER) 100 mg 24 hr tablet Take 3 tablets (300 mg total) by mouth daily 04/21/19 25 Active zolpidem (AMBIEN) 10 mg tablet TAKE 1 TABLET BY MOUTH NIGHTLY AT BEDTIME 30 tablet 05/21/19 25 Active clonazePAM (KlonoPIN) 0.5 mg tablet Take 1 tablet (0.5 mg total) by mouth nightly 30 tablet 05/29/19 25 Active topiramate (TOPAMAX) 25 mg capsule Take 1 capsule (25 mg total) by mouth 2 (two) times a day 60 capsule 5 08/16/19 25 025 Active rOPINIRole (REQUIP) 0.5 mg tabletIndicati ons:MYRIAM (obstructive sleep apnea) Take 1 tablet by mouth nightly 30 tablet 08/20/19 25 Active primidone (MYSOLINE) 50 mg tablet Take 1 tablet by mouth twice daily 60 tablet 08/20/19 25 Active rOPINIRole (REQUIP) 0.5 mg tabletIndicati ons:MYRIAM (obstructive sleep apnea) Take 1 tablet by mouth nightly 30 tablet 07/05/19 25 025 Discontinued primidone (MYSOLINE) 50 mg tablet Take 1 tablet by mouth twice daily 60 tablet 07/22/19 25 025 Discontinued rOPINIRole (REQUIP) 0.5 mg tabletIndicati ons:MYRIAM (obstructive sleep apnea) Take 1 tablet by mouth nightly 30 tablet 06/09 025 Discontinued Active Problems Problem Noted Date Diagnosed Date Chronic upper extremity pain, unspecified latera lity 01/16/2023 Chronic upper extremity pain 12/29/2022 Chronic back pain 12/29/2022 Atrial flutter 01/10/2022 On continuous oral anticoagulation 01/10/2022 Medicare annual wellness visit, subsequent 02/06 Assessment & Plan (09/16/2019 9:14 AM CDT): Patient Counseling: --Nutrition: Stressed importance of moderation in sodium/caffeine intake, saturated fat and cholesterol, caloric balance, sufficient intake of fresh fruits, vegetables, --Exercise: Stressed the importance of regular exercise. --Injury prevention: Discussed safety belts, throw rugs in house, smoke detectors, --Dental health: Discussed importance of regular tooth brushing, flossing, and dental visits. --Immunizations reviewed and offered- updated pneumonia today, recommended shingrex at pharmacy --Discussed benefits of screening colonoscopy- pt states he has cologuard at home to do. Morbid obesity with BMI of 40.0-44.9, adult 10/28 Assessment & Plan (03/19/2020 9:43 AM HIGH SCHOOL SCIENCE TEACHER): BMI Follow-up includes: exercise counseling. Assessment & Plan (09/16/2019 9:07 AM CDT): BMI Follow-up includes: education provided. Assessment & Plan (03/21/2019 12:41 PM HIGH SCHOOL SCIENCE TEACHER): BMI Follow-up includes: exercise counseling. Assessment & Plan (09/17/2018 3:34 PM CDT): BMI Follow-up includes: exercise counseling. Chronic right-sided low back pain with right-cele ed sciatica 10/10/2016 Bradycardia 08/10/2016 Overview (08/10/2016): EKG shows sinus bradycardia with no evidence of ischemia or blockage. Chart reviewed. Cardiac catheterization done August 2015 was essentially without anomaly. Anemia due to vitamin B12 deficiency 08/10/2016 Overview (08/10/2016): Checking level today. Continue monthly injections for now but will adjust treatment plan accordingly pending results. Vitamin D deficiency disease 08/10/2016 Overview (08/10/2016): Check 125 as well as 25 hydroxy vitamin D levels. Adjust treatment plan accordingly pending results. Assessment & Plan (03/19/2020 9:45 AM HIGH SCHOOL SCIENCE TEACHER): Currently on daily nscw-nme-yudzrhg vitamin-D. Will check vitamin-D level Assessment & Plan (03/21/2019 12:41 PM HIGH SCHOOL SCIENCE TEACHER): History of. Check vitamin D level today. Continue dkwb-ygu-syqbpmc daily vitamin-D Assessment & Plan (09/17/2018 3:45 PM CDT): Discontinue weekly vitamin-D. Will have him start uhmq-kez-vdyxzqk vitamin-D supplements 9479-6528 units daily. Essential hypertension 08/10/2016 Overview (08/10/2016): Stable on current med regimen. Med list reviewed. Patient is not on any beta valencia or other medication to slow heart rate. Assessment & Plan (03/19/2020 9:43 AM HIGH SCHOOL SCIENCE TEACHER): Blood pressure is adequately controlled on current medication. We will not make any medication changes today. Will have him follow-up in 6 months for continued monitoring and management Assessment & Plan (09/16/2019 9:13 AM CDT): Blood pressure is elevated today. BP rechecked manually at 160/70. Discussed adding another medication. Pt is hesitant to do so. He has had SE's to amlodipine, hctz and they are listed on his allergy list. I asked him to check his BP at home over the next 1-2 weeks and [facility] Pt was agreeable to this plan of care. Labs done in February and were reviewed and normal. Assessment & Plan (03/21/2019 12:42 PM HIGH SCHO[employer] SCIENCE TEACHER): Blood pressure is adequately controlled on current medication. We will not make any medication changes today. Will have her follow-up in 6 months for continued monitoring and management Assessment & Plan (09/17/2018 3:45 PM CDT): Hypertension is improving with treatment. Continue current medications. Blood pressure will be reassessed 6 months. Chronic fatigue 08/10/2016 Overview (08/10/2016): Check CBC level B12, TSH. Adjust treatment plan accordingly pending results. Obstructive sleep apnea syndrome 03/25/2015 Overview (06/03/2016): OBSTRUCTIVE SLEEP APNEA Assessment & Plan (03/19/2020 9:45 AM HIGH SCHOOL SCIENCE TEACHER): Managed by Dr. Zapata Atopic rhinitis 07/13/2013 Overview (06/03/2016): ALLERGIC RHINITIS NOS Assessment & Plan (06/01/2021 4:06 PM CDT): Nasal saline spray (Simply saline, Little Remedies, [place], [place]) 2 second sprays or 2 squeezes into each nostril while looking down over the sink, do not need to sniff in. Followed by Flonase 2 sprays into each nostril while looking down over the sink, do not sniff in or blow nose after use for at least 30 minutes daily in the Evening 30-60 minutes prior to BiPap use Continue BiPap May use Sudafed as needed Call if no improvement in 6 weeks Consider Pepcid if no improvement Pure hypercholesterolemia 07/13/2013 Overview (06/03/2016): PURE HYPERCHOLESTEROLEM Assessment & Plan (03/19/2020 9:44 AM HIGH SCHO[employer] SCIENCE TEACHER): Lipid abnormalities are stable, reviewed previous lipid levels in [facility]. Pharmacotherapy as ordered. Order for lipid panel was given today to be obtained. Pt voiced understanding of lab drawn and continuation of current medication regimen. Assessment & Plan (03/21/2019 12:42 PM HIGH SCHOOL SCIENCE TEACHER): Lipid abnormalities are stable. Pharmacotherapy as ordered. Lipids will be reassessed in 6 months. Assessment & Plan (09/17/2018 3:34 PM CDT): Lipid abnormalities are improving with treatment. Pharmacotherapy as ordered. Lipids will be reassessed in 6 months. Depression 07/13/2013 Overview (06/03/2016): DEPRESSIVE DISORDER NEC Impaired fasting glucose 07/13/2013 Overview (06/03/2016): IMPAIRED FASTING GLUCOSE Assessment & Plan (03/21/2019 12:29 PM HIGH [employer]CHO[employer] SCI[employer] TEACHER): History of. Will check hemoglobin A1c Generalized osteoarthritis 07/13/2013 Overview (06/03/2016): GENERAL OSTEOARTHROSIS Restless leg syndrome 04/11/2011 Overview (06/03/2016): Restless legs syndrome (RLS) Hypersomnia with sleep apnea 04/11/2011 Overview (06/03/2016): Hypersomnia with sleep apnea Insomnia 04/11/2011 Overview (06/03/2016): Insomnia Resolved Problems Problem Noted Date Diagnosed Date Resolved Date Dysphagia 09/18/2019 03/19/2020 Overview (09/18/2019): Added automatically from request for surgery [id number] Morbid obesity 05/21/2015 09/17/2018 Overview (06/03/2016): MORBID OBESITY Benign hypertension 07/13/2013 05/16/19 19 Overview (06/03/2016): BENIGN HYPERTENSION Immunizations Immunization Administration Dates Next Due Influenza, Quadrivalent, Hig h Dose, Preservative Free, Intrr 11/21/2019 Influenza, Quadrivalent, Spl it, Intramuscular 01/07/2016 Influenza, Quadrivalent, Spl it, Preservative Free, Intradermal 03/02/2015 Influenza, Quadrivalent, Spl it, Preservative Free, Intramuscular 12/17/2018,12/29/2017,12/29/2016 Influenza, Split 12/05/2012,12/19/2011 Influenza, Trivalent, IM (MDV) 12/09/2015,2014,12/12/2008 Influenza, Unspecified 12/19/2022 Pneumococcal Conjugate PCV 13 09/16/2019 Tdap 12/07/2023,02/06/2017 Social History Tobacco Use Types Packs/Day Years Used Date Smoking Tobacco: Never Smokeless Tobacco: Former Quit: 2007 Tobacco Cessation:Counseling Given: Not Answered Alcohol Use Standard Drinks/Week Comments No 0 (1 standard drink = 0.6 oz pur e alcohol) AUDIT-C Answer Date Recorded Q1: How often do you have a drink containing alcohol? Never 01/16/2023 Q2: How many drinks containi ng alcohol do you have on a typical day when you are drinking? Patient does not drink Q3: How often do you have si x or more drinks on one occasion? Never 01/16/2023 PHQ-2 Answer Date Recorded PHQ-2 Total Score (If total score is 3 or more points, staff should administer the PHQ-9) 0 09/16/2019 Personal Safety Answer Date Recorded Have you ever been in or are you currently in a harmful physical or emotional relationship or is someone making you feel afraid or unsafe? Denies 12/07/2023 Sex and Gender Information Value Date Recorded Sex Assigned at Not on file Legal Sex Male 3:05 PM HIGH [employer] TE[employer]ER Gender Identity Not on file Sexual Orientation Straight 09/25/2021 12 :10 PM CDT Last Filed Vital Signs Vital Sign Reading Time Taken Comments Blood Pressure 117/71 08/15/2024 8:28 AM CDT Pulse 69 08/15/2024 8:28 AM CDT Temperature 36.4 C (97.6 F) 12/07/2023 7:21 PM CDT Respiratory Rate 18 05/14/2024 8:31 AM CDT Oxygen Saturation 94% 08/15/2024 8:28 AM CDT Inhaled Oxygen Concentration - - Weight 116.6 kg (257 lb) 08/15/2024 8:28 AM CDT Height 185.4 cm (6' 1) 08/15/2024 8:28 AM CDT Body Mass Index 33.91 08/15/2024 8:28 AM CDT Plan of Treatment Not on file Medical Devices Implanted Type Area Fruit Thinner Device Identifier Shelf Expiration Date Model / Serial / Lot Pin-02/14/2015 Implanted: 5 (Quantity not on file) Timbo Duenas l: Knee Implantable Pulse Generator Implanted:Qty: 1 on 01/16/2023 by Jeremy Freire MD at [facility] N/A: Back [employer] 12/02/2024 [id number] / [id number] / Description:CHARGED WITH BRENDAN ROSTIMULATOR SYSTEM [employer] Penta 60cm Paddle 3mm Lead Neurostimulator 3228 - [id number] - [id number] Implanted:Qty: 1 on 01/16/2023 by Jeremy Freire MD at [facility] N/A: Back [employer] 06/20/2024 [id number] / [id number] / [employer] Cast-Lock [place] Lead 1192 - [id number] Implanted:Qty: 1 on 01/16/2023 by Jeremy Freire MD at [facility] N/A: Back [employer] 09/27/2024 1192 / / [id number] Biocom[employer]ure Stimulan Rapid Cure Kit Paste Integration Architect 5cc 12.5cc Bone Void 620-005 - [id number] Implanted:Qty: 1 on 01/16/2023 by Jeremy Freire MD at [facility] N/A: Back [employer] 620-005 / / [employer] Generator Neurostimulator Spine Rechargeable Eterna [id number] - [id number] Implanted:Qty: 1 on 01/16/2023 by eJremy Freire MD at [facility] N/A: Back [employer] [id number] / / Procedures Procedure Name Priority Date/Time Associated Diagnosis Comments FIT OCCULT BLOOD, FECAL Routine 10/11/2019 HEPATITIS C ANTIBODY Routine 03/18/2019 1:57 PM HIGH [employer] SCI[employer] TE[employer]ER Encounter for hepatitis C screening test for low risk patient PSA SCREEN Routine 05/15/2018 10:00 AM CDT Prostate cancer screening COLONOSCOPY Routine 01/11/2008 from Last 3 Months or Most Recently Relevant to Health Maintenance Results * FIT occult blood, fecal (10/11/2019) Stool Historical Provider MD LAB BODY FLUIDS AND STOOL S ORDERABLES Final Result Performing Organization Address City/[facility]/ZIP Co de Phone Number EXTERNAL LAB * Hepatitis C antibody (03/18/2019 1:57 PM HIGH S[employer]OL SCIENCE TEACHER) Hep C Ab Negative Negative DONALD DOE (KELSIE) Comment:Testing performed by : [facility], [address] [place] [address], [place]., [address] Blood specimen (specimen) 03/18/2019 1:57 PM HIGH SCHOOL SCIENCE TEACHER 03/19/2019 9:24 AM HIGH S[employer] SCIENCE TEACHER Moni Ba NP LAB MICROBIOLOGY - GENERAL OR DERABLES Final Result Performing Organization Address City/State/[facility] Co de Phone Number DONALD DOE (KELSIE) 1 [facility] [place] [address] * PSA screen (05/15/2018 10:00 AM CDT) PSA-Total 1.85 <=5.40 ng/mL DONALD DOE (KELSIE) Comment: Interpretive Data AGE SEX REFERENCE INTERVAL 0 minutes-150 years Female None 0 minutes-49 years Male None 50-59 years Male 0-3.90 60-69 years Male 0-5.40 70-79 years Male 0-6.20 80-150 years Male 0-6.20 Current interpretive data last revised 2018. Testing performed by: [facility], [address] [place] [address], [place]., [address] Blood specimen (specimen) 05/15/2018 10:00 AM CDT 05/15/2018 8:26 PM CDT Narrative DONALD DOE (KELSIE) - 05/15/2018 9:12 PM CDT Mena Rhodes TOP INSTALLER LAB BLOOD ORDERABLES Final Resu lt [facility] KELSIE 1 [facility] [place] [address] * COLONOSCOPY (01/11/2008) Colonoscopy Unknown us Historical Provider MD HEALTH MAINTENANCE Final Result from Last 3 Months or Most Recently Relevant to Health Maintenance Insurance [employer] CHOICE MEDICARE PPO HU[employer] CHOICE MEDICARE PPO HU[employer] CHOICE MEDICARE PPO HU[employer] CHOICE MEDICARE PPO Advance Directives For more information, please contact: [phone] * Full Code (Latest Code Status on File) Date Activated Date Inactivated Comments 01/16/2023 12:21 PM 01/17/2023 4:21 PM * Full Code Date Activated Date Inactivated Comments 10/24/2019 9:04 AM 10/24/2019 2:34 PM * Full Code Date Activated Date Inactivated Comments 10/24/2019 9:04 AM 10/24/2019 9:04 AM Care Teams Vb Net Developer Relationship Specialty Start Date End Date Oliver Sol MD [address] [facility] [place] [address] PCP - General Internal Medicine 10/19/20 Jeremy Freire MD [address] [facility] [place] [address] Consulting Physician Neurosurgery 01/17/23
--- OUTSIDE RECORDS SUMMARY | 2024-09-01 19:18 | XMS_ITS | Clinical Summary ---
Author Organization [facility] Address [address] [place] [address] Care Team Providers Care Open Winder Name Role Phone Oliver Sol MD Primary Care Provider + Jeremy Freire MD Unavailable [phone] Allergies Active Allergy Reactions Criticality Noted Date [...] mg total) Active cholecalcifero l (VITAMIN D-3) 18997 unit capsule Take 1 capsule (10,000 Units [...] sprays into each nostril daily 16 g 11 06/02/19 22 Active cetirizine (ZyrTEC) 10 mg tabletIndicati ons:Non-season al allergic rhinitis due to pollen Take 1 tablet (10 mg total) by mouth daily 30 tablet 11 06/02/19 22 Active rosuvastatin (CRESTOR) 10 mg [...] BY MOUTH ONE HOUR BEFORE SEXUAL ACTIVITY. MAY REPEAT 1 TIME. MAX OF 2 TABS [...] 1 tablet by mouth nightly 30 tablet 08/06/19 25 025 Discontinued Active Problems Problem Noted Date [...] 10/28 Assessment & Plan (03/19/2020 9:[address]): BMI Follow-up includes: exercise counseling. Assessment & Plan (09/16/2019 9:07 AM CDT): BMI Follow-up includes: education provided. Assessment & Plan (03/21/2019 12:[address] [facility]): BMI Follow-up includes: exercise counseling. Assessment & [...] results. Assessment & Plan (03/19/2020 9:[address] [facility]): Currently on daily znbx-ntf-tyercze vitamin-D. Will check vitamin-D level Assessment & Plan (03/21/2019 12:[address] [facility]): History of. Check vitamin D level today. Continue [id number] daily vitamin-D Assessment & Plan (09/17/2018 3:45 PM CDT): Discontinue weekly vitamin-D. Will have him start gcur-ofv-cmeonxe vitamin-D supplements 4057-7295 units daily. Essential hypertension 08/10/2016 Overview (08/10/2016): Stable on current med regimen. Med list reviewed. Patient is not on any beta valencia or other medication to slow heart rate. Assessment & Plan (03/19/2020 9:[address] [facility]): Blood pressure is adequately controlled on current [...] 1-2 weeks and send me readings over [email or web address]. Pt was agreeable to this plan of care. Labs done in February and were reviewed and normal. Assessment & Plan (03/21/2019 12:[address] [facility]): Blood pressure is adequately controlled on current [...] APNEA Assessment & Plan (03/19/2020 9:[address] [facility]): Managed by Dr. Zapata Atopic rhinitis 07/13/2013 Overview (06/03/2016): ALLERGIC RHINITIS NOS Assessment & Plan (06/01/2021 4:06 PM CDT): Nasal saline spray (Simply saline, [employer] Remedies, [place], [place]) 2 second sprays or 2 squeezes into [...] HYPERCHOLESTEROLEM Assessment & Plan (03/19/2020 9:[address] [facility]): Lipid abnormalities are stable, reviewed previous lipid levels in epic. Pharmacotherapy as ordered. Order for lipid panel was given today to be obtained. Pt voiced understanding of lab drawn and continuation of current medication regimen. Assessment & Plan (03/21/2019 12:[address] [facility]): Lipid abnormalities are stable. Pharmacotherapy as ordered. Lipids will be reassessed in 6 months. Assessment & Plan (09/17/2018 3:34 PM CDT): Lipid abnormalities are improving with treatment. Pharmacotherapy as ordered. Lipids will be reassessed in 6 months. Depression 07/13/2013 Overview (06/03/2016): DEPRESSIVE DISORDER NEC Impaired fasting glucose 07/13/2013 Overview (06/03/2016): IMPAIRED FASTING GLUCOSE Assessment & Plan (03/21/2019 12:[address] [facility]): History of. Will check hemoglobin A1c Generalized osteoarthritis 07/13/2013 Overview (06/03/2016): GENERAL OSTEOARTHROSIS Restless leg syndrome 04/11/2011 Overview (06/03/2016): Restless legs syndrome (RLS) Hypersomnia with sleep apnea 04/11/2011 Overview (06/03/2016): Hypersomnia with sleep apnea Insomnia 04/11/2011 Overview (06/03/2016): Insomnia Resolved Problems Problem Noted Date Diagnosed Date Resolved Date Dysphagia 09/18/2019 03/19/2020 Overview (09/18/2019): Added automatically from request for surgery [id number] Morbid obesity 05/21/2015 09/17/2018 Overview (06/03/2016): MORBID OBESITY Benign hypertension 07/13/2013 05/16/19 19 Overview (06/03/2016): BENIGN HYPERTENSION Encounters Date Type Department Care Team Description 08/15/2024 8:30 AM CDT Office Visit [facility] [address] [place] [address] [address] [place] [address] Terry Zapata MD MYRIAM (obstructive sleep apnea) (Primary Dx); Restless leg syndrome; Psychophysiological insomnia; Essential tremor; Hypersomnia with sleep apnea 08/15/2024 Orders Only [facility] [address] [place] [address] [address] [place] [address] Terry Zapata MD 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 (Primary Dx); Post-traumatic headache, not intractable, unspecified chronicity pattern from Last 3 Months Immunizations Immunization Administration Dates Next Due Influenza, Quadrivalent, Hig h Dose, Preservative Free, Intrr 11/21/2019 Influenza, Quadrivalent, Spl it, Intramuscular 01/07/2016 Influenza, Quadrivalent, Spl it, Preservative Free, Intradermal 03/02/2015 Influenza, Quadrivalent, Spl it, Preservative Free, Intramuscular 12/17/2018,12/29/2017,12/29/2016 Influenza, Split 12/05/2012,12/19/2011 Influenza, Trivalent, IM (MDV) 12/09/2015,2014,12/12/2008 Influenza, Unspecified 12/19/2022 Pneumococcal Conjugate PCV 13 09/16/2019 Tdap 12/07/2023,02/06/2017 Surgical History Surgery Date Site/Laterality Comments REPLACEMENT TOTAL KNEE BILATERAL OA left knee: knee replacement UPPER GASTROINTESTINAL ENDOSCOPY ACHILLES TENDON SURGERY collagen CLAVICLE SURGERY Right removed an inch CARDIOVERSION 02/27/2022 - 03/29/2022 for a flutter Medical History Medical History Date Comments Hyperlipidemia Hyperlipidemia Hypertension Hypertension Tension headache Headache, tensi on Osteoarthritis of left knee OA l eft knee Sleep apnea Bradycardia resting HR in 40 's Atrial flutter (HCC) Chronic pain disorder leg pain, back spasms Restless legs syndrome (RLS) History of cardioversion 02/2022 a flutt er Difficulty swallowing Family History Medical History Relation Name Comments Autoimmune disease Father Hypertension Mother Hypertension; Other Other 1 Family history of ALS; Alzheimer's disease Other 2 Family h istory of Alzheimer's Disease; Relation Name Status Comments Father Mother Other 1 Other 2 Social History Tobacco Use Types Packs/Day Years [...] on file Legal Sex Male 3:[address] Gender Identity Not on file Sexual Orientation Straight 09/25/2021 12 :10 PM CDT Obstetrics History Last Filed Vital Signs Vital Sign Reading [...] 08/15/2024 8:28 AM CDT Plan of Treatment Health Maintenance Due Date Last Done Comments Hepatitis B Screening 1972 Zoster Vaccine (1 of 2) 2004 Depression Screening 09/15/2020 09/16/2019, 09/17/2018, 05/15/2018, Additional history exists Pneumococcal vaccine 65+ (2 of 2 - PPSV23) 09/15/2020 09/16/2019 Well Visit 65+ 09/15/2020 09/16/2019 Colon Cancer Screening-FIT 10/10/202010/10, 01/11/2008, 01/11/2008 Fall Risk Assessment 01/18/2024 01/17/2023, 09/16/19 Influenza Vaccine (Season Ended) 2024 12/19/2022, 11/21/2019, 12/17/2018, Additional history exists DTaP/Tdap/Td Vaccine (3 - Td or Tdap) 12/06/2033 12/07/2023, 02/06/2017 Colon Cancer Screening-CT Colonography Discontinued 01/11/2008, 01/11/2008 Colon Cancer Screening-Colonoscopy Discontinued 01/11/2008, 01/11/2008 Colon Cancer Screening-DNA Stool Discontinued 01/11/20 08, 01/11/2008 Colon Cancer Screening-Sigmoidoscopy Discontinued 01/11/2008, 01/11/2008 Prostate Cancer Screening-PSA Discontinued 05/15/2018 Hepatitis C Screening Completed 03/18/2019 Medical Devices Implanted Type Area Music Engineer Device Identifier Shelf Expiration Date Model / Serial / Lot Pin-02/14/2015 Implanted: 5 (Quantity not on file) Pin Henrique l: Knee Implantable Pulse Generator Implanted:Qty: 1 on 01/16/2023 by Jeremy Freire MD at [facility] N/A: Back [employer] 12/02/2024 [id number] / [id number] / Description:CHARGED WITH BRENDAN ROSTIMULATOR SYSTEM [employer] Penta 60cm Paddle 3mm Lead Neurostimulator 3228 - [id number] - [id number] Implanted:Qty: 1 on 01/16/2023 by Jeremy Freire MD at [facility] N/A: Back [employer] 06/20/2024 [id number] / [id number] / [employer] Cast-Lock [place] Lead 1192 - [id number] Implanted:Qty: 1 on 01/16/2023 by Jeremy Freire MD at [facility] N/A: Back [employer] 09/27/2024 1192 / / [id number] Biocom[employer]iCellectis Stimulan Rapid Cure Kit Paste Form Setter Metal Road Forms 5cc 12.5cc Bone Void 620-005 - [id number] Implanted:Qty: 1 on 01/16/2023 by Jeremy Freire MD at [facility] N/A: Back [employer] 620-005 / / [employer] Generator Neurostimulator Spine Rechargeable Eterna [id number] - [id number] Implanted:Qty: 1 on 01/16/2023 by Jeremy Freire MD at [facility] N/A: Back [employer] [id number] / / Procedures Procedure Name Priority Date/Time Associated Diagnosis Comments FIT OCCULT BLOOD, FECAL Routine 10/11/2019 HEPATITIS C ANTIBODY Routine 03/18/2019 1:[address] [facility] Encounter for hepatitis C screening test for low risk patient PSA SCREEN Routine 05/15/2018 10:00 AM CDT Prostate cancer screening HM COLONOSCOPY Routine 01/11/2008 from Last 3 Months or Most Recently Relevant to Health Maintenance Results * FIT occult blood, fecal (10/11/2019) Stool us Historical Provider MD LAB BODY FLUIDS AND STOOL S ORDERABLES Final Result Performing Organization Address [facility] Co de Phone Number EXTERNAL LAB * Hepatitis C antibody (03/18/2019 1:[address] [facility]) Hep C Ab Negative Negative DONALD DOE (KELSIE) Comment:Testing performed by : [facility], [address] [place] [address]., [id number] Blood specimen (specimen) 03/18/2019 1:[address] [facility] 03/19/2019 9:[address] [facility] us Moni Ba REPAIRER HELPER LAB MICROBIOLOGY - GENERAL OR DERABLES Final Result Performing Organization Address [facility] Co de Phone Number DONALD DOE (KELSIE) 1 [facility] Department [place] [address] * PSA screen (05/15/2018 10:00 AM CDT) PSA-Total 1.85 <=5.40 ng/mL DONALD DOE (KELSIE) Comment: Interpretive Data AGE SEX REFERENCE INTERVAL 0 minutes-150 years Female None 0 minutes-49 years Male None 50-59 years Male 0-3.90 60-69 years Male 0-5.40 70-79 years Male 0-6.20 80-150 years Male 0-6.20 Current interpretive data last revised 2018. Testing performed by: [facility], [address] [place] [address], [place]., [address] Blood specimen (specimen) 05/15/2018 10:00 AM CDT 05/15/2018 8:26 PM CDT Narrative DONALD DOE (KELSIE) - 05/15/2018 9:12 PM CDT Mena Rhodes NP LAB BLOOD ORDERABLES Final Resu lt Performing Organization Address [facility] Co de Phone Number DONALD DOE (KELSIE 1 [facility] Department [place] [address] * COLONOSCOPY (01/11/2008) Colonoscopy Unknown us Historical Provider MD HEALTH MAINTENANCE Final Result from Last 3 Months or Most Recently Relevant to Health Maintenance Insurance HU[employer] CHOICE MEDICARE PPO HU[employer]NA CHOICE MEDICARE PPO HUMANA CHOICE MEDICARE PPO HUMANA CHOICE MEDICARE PPO Advance Directives For more information, please contact: [phone] * Full Code (Latest Code Status on File) Date Activated Date Inactivated Comments 01/16/2023 12:21 PM 01/17/2023 4:21 PM * Full Code Date Activated Date Inactivated Comments 10/24/2019 9:04 AM 10/24/2019 2:34 PM * Full Code Date Activated Date Inactivated Comments 10/24/2019 9:04 AM 10/24/2019 9:04 AM Care Teams Open Winder Relationship Specialty Start Date End Date Oliver Sol MD [address] [place] [address] PCP - General Internal Medicine 10/19/20 Jeremy Freire MD [address] [place] [id number] Consulting Physician Neurosurgery 01/17/23
--- OUTSIDE RECORDS SUMMARY | 2024-09-01 19:18 | XMS_ITS | Clinical Summary ---
Author Organization [facility] Address [address] [place] [place] [address] Care Team Providers Care Nursing Administrator Name Role Phone Oliver Sol MD Primary Care Provider [phone] Social History Tobacco Use Types Packs/Day Years Used Date Smoking Tobacco: Never Tobacco Cessation:Counseling Given: Not Answered Sex and Gender Information Value Date Recorded Sex Assigned at Not on file Legal Sex Male 11:50 PM CDT Gender Identity Not on file Sexual Orientation Not on file Plan of Treatment Health Maintenance Due Date Last Done Comments Hepatitis C Virus (HCV) Screening 1955 Cologuard 05/13/1999 Colonoscopy 05/13/1999 Colorectal Cancer Screening 05/13/1999 Immunochemical Fecal Occult Blood 05/13/1999 Zoster Immunization (1 of 2) 2004 Pneumococcal Immunization (50+ years) (2 of 2 - PPSV23) 09/15/2020 09/16/2019 SARS-COV-2 Immunization (2 - season) 2023 06/02/2020 Influenza Immunization (#1) 10/28/202411/29, 12/19/2022, 11/21/2019, Additional history exists Respiratory Syncytial Virus (RSV) Immunization (Adult) (1 - 1-dose 75+ series) 2029 TdaP Immunization Completed 12/07/2023, 02/06/2017 Hepatitis B Immunization Aged Out No longer eligible based on patient's age to complete this topic Human Papillomavirus (HPV) Immunization Aged Out No longer eligible based on patient's age to complete this topic Meningococcal Immunization (ACWY) Aged Out No longer eligible based on patient's age to complete this topic Rotavirus Immunization Aged Out No lo nger eligible based on patient's age to complete this topic Insurance MEDICARE C HUMANA Care Teams Nursing Administrator Relationship Specialty Start Date End Date Oliver Sol MD [address] [place] [address] PCP - General Internal Medicine 11/22/23
[2024-09-01 19:30] VITALS: BP 171/90; PULSE 70; RESP 18; TEMP 36.2; O2SAT 99
== END 2024-09-01 20:10 | disposition home or self-care (01) ==
PROVIDERS: Emergency Provider Nurse Practitioner Family; PCP Internal Medicine
DX: S40.011A Contusion of right shoulder, initial encounter (principal); W19.XXXA Unspecified fall, initial encounter; I48.91 Unspecified atrial fibrillation; I10 Essential (primary) hypertension; G47.33 Obstructive sleep apnea (adult) (pediatric); Z95.0 Presence of cardiac pacemaker; E78.00 Pure hypercholesterolemia, unspecified; Z79.01 Long term (current) use of anticoagulants; F32.A Depression, unspecified; Z96.82 Presence of neurostimulator
CPT/HCPCS: 73030; 99213; G0463